=== PATIENT | male | born 1990 | race African-American/Black ===

== ENCOUNTER 2021-01-11 16:37 | Outpatient (REF) | payer OTHER, SELFPAY ==
[2021-01-11 17:55] LABS: Hematocrit 42.9 % (42-52); Hemoglobin 15.2 g/dl (14.0-18.0); Mean Corpuscular HGB Conc 35.4 g/dl (31.0-36.0); Mean Corpuscular Hemoglobin 29.7 pg (27.0-33.0); Mean Corpuscular Volume 83.8 fL (80-98); Mean Platelet Volume 11.3 fL (9.4-12.4); Platelet Count 197 X10*3/uL (160-400); Red Blood Count 5.12 X10*6/uL (4.60-5.80); Red Cell Distribution Width 11.9 % (11.0-16.0); White Blood Count 6.2 X10*3/uL (4.8-10.8)
[2021-01-11 18:03] LABS: Glucose Urine UA NEG (NEG); Leukocyte Esterase Urine NEG (NEG); Nitrite Urine NEG (NEG); Specific Gravity - Urine <= 1.005 (1.005-1.025); Urine Blood NEG (NEG); Urine Ketones NEG (NEG); Urine Protein NEG (NEG-TRACE)
[2021-01-11 18:07] LABS: Appearance Urine CLEAR; Color Urine COLORLESS
[2021-01-11 18:26] LABS: Alanine Aminotransferase 40 U/L (0-40); Albumin Level 4.6 g/dL (3.5-5.0); Alkaline Phosphatase 106 U/L (39-117); Anion Gap 12 (12-20); Aspartate Amino Transferase 28 U/L (5-37); Bilirubin Direct 0.2 mg/dL (0.0-0.5); Bilirubin Total 0.7 mg/dL (0.0-1.0); Blood Urea Nitrogen 13 mg/dL (9-16); Calcium 9.8 mg/dL (8.4-10.2); Carbon Dioxide 29 mmol/L (22-29); Chloride 107 mmol/L (96-108); Cholesterol 214 mg/dL; Estimated Glomerular Filt Rate > 60; Glucose Random 72 mg/dL (60-115); HDL Cholesterol 48 mg/dL; LDL Cholesterol Calculated 135 mg/dl; Potassium 3.9 mmol/L (3.3-5.1); Sodium 144 mmol/L (135-145); Total Protein 7.2 g/dL (6.5-8.0); Triglycerides 155 mg/dL
[2021-01-11 18:45] LABS: Thyroid Stimulating Hormone 1.21 uIU/mL (0.32-4.0)
== END 2021-01-11 16:38 | disposition home or self-care (01) ==
LOC: HO.LAB 16:37
PROVIDERS: PCP Internal Medicine; Visit Provider Internal Medicine
DX: Z00.00 Encounter for general adult medical examination without abnormal findings (principal)
CPT/HCPCS: 36415; 80048; 80061; 80076; 81003; 84443; 85027

== ENCOUNTER 2022-04-25 11:51 | Outpatient (REF) | payer OTHER, SELFPAY ==
[2022-04-25 14:07] LABS: Hematocrit 44.3 % (42.0-52.0); Hemoglobin 15.6 g/dl (14.0-18.0); Mean Corpuscular HGB Conc 35.2 g/dl (31.0-36.0); Mean Corpuscular Hemoglobin 29.3 pg (27.0-33.0); Mean Corpuscular Volume 83.1 fL (80.0-98.0); Mean Platelet Volume 11.8 fL (9.4-12.4); Platelet Count 193 X10*3/uL (160-400); Red Blood Count 5.33 X10*6/uL (4.60-5.80); White Blood Count 5.8 X10*3/uL (4.8-10.8)
[2022-04-25 14:59] LABS: Alanine Aminotransferase 86 U/L (0-40); Albumin Level 4.5 g/dL (3.5-5.0); Alkaline Phosphatase 127 U/L (39-117); Anion Gap 14 (12-20); Aspartate Amino Transferase 34 U/L (5-37); Bilirubin Direct 0.2 mg/dL (0.0-0.5); Bilirubin Total 0.8 mg/dL (0.0-1.0); Blood Urea Nitrogen 13 mg/dL (9-16); Calcium 9.7 mg/dL (8.4-10.2); Carbon Dioxide 27 mmol/L (22-29); Chloride 106 mmol/L (96-108); Cholesterol 187 mg/dL; Estimated Glomerular Filt Rate > 60; Glucose Random 72 mg/dL (60-115); HDL Cholesterol 43 mg/dL; LDL Cholesterol Calculated 124 mg/dl; Potassium 4.7 mmol/L (3.3-5.1); Sodium 142 mmol/L (135-145); Thyroid Stimulating Hormone 0.55 uIU/mL (0.32-4.0); Triglycerides 104 mg/dL
== END 2022-04-25 11:52 | disposition home or self-care (01) ==
LOC: HO.LAB 11:51
PROVIDERS: PCP Internal Medicine; Visit Provider Internal Medicine
DX: Z00.00 Encounter for general adult medical examination without abnormal findings (principal)
CPT/HCPCS: 36415; 80048; 80061; 80076; 84443; 85027

== ENCOUNTER 2022-04-28 09:18 | Outpatient (REF) | payer OTHER, SELFPAY ==
[2022-04-28 12:10] LABS: HBS Num1 > 1000.00 mIU/mL (0-7.99); HBc Num1 0.06 S/CO (0.00-0.79); HBsAGNum1 0.28 S/CO (0.00-0.99); Hepatitis B Core Antibody Nonreactive (Nonreactive); Hepatitis B Surface Antigen Negative (Negative); ~Hepatitis B Surface Antibody REACTIVE (Nonreactive); ~Hepatitis C Antibody Nonreactive (Nonreactive)
[2022-04-29 08:34] LABS: Hepatitis A Antibody IgM 0.15 Index (0-0.79); ~Hepatitis A Antibody IgM Nonreactive (Nonreactive)
== END 2022-04-28 09:19 | disposition home or self-care (01) ==
LOC: HO.LAB 09:18
PROVIDERS: PCP Internal Medicine; Visit Provider Internal Medicine
DX: K75.9 Inflammatory liver disease, unspecified (principal)
CPT/HCPCS: 36415; 86704; 86706; 86709; 86803; 87340

== ENCOUNTER 2022-05-26 09:51 | Outpatient (REF) | payer OTHER, SELFPAY ==
--- NOTE | ~2022-05-26 | US_ITS ---
EXAMINATION: US ABDOMEN COMPLETE CLINICAL INFORMATION: Abnormal levels of other serum enzymes. COMPARISON: None TECHNIQUE: Real-time imaging of the abdominal viscera. FINDINGS: PANCREAS: Normal. ABDOMINAL AORTA: The proximal, mid, and distal segments are normal in caliber. INFERIOR VENA CAVA: Visualized portions are normal. LIVER: The liver is normal in size. The liver contour is normal. Diffusely increased hepatic echogenicity and sound attenuation consistent with diffuse hepatic steatosis. There are areas of geographic focal fatty sparing seen adjacent to gallbladder fossa. No focal hepatic lesion. There is no intrahepatic biliary duct dilatation seen. GALLBLADDER: Normal. The gallbladder is physiologically distended without evidence of stones, sludge, polyps, wall thickening or pericholecystic fluid. COMMON BILE DUCT: Normal in caliber measuring 0.3 cm in diameter. RIGHT KIDNEY: Normal. No hydronephrosis. No renal calculi or focal parenchymal lesions. The kidney measures 9.8 cm in maximum dimension. LEFT KIDNEY: Normal. No hydronephrosis. No renal calculi or focal parenchymal lesions. The kidney measures 9.9 cm in maximum dimension. SPLEEN: Normal. The spleen measures 9.1 cm in maximum dimension. FREE FLUID: None. US/US abdomen complete IMPRESSION: Sonographic appearance of diffuse hepatic steatosis with areas of focal fatty sparing adjacent to gallbladder fossa.
== END 2022-05-26 09:52 | disposition home or self-care (01) ==
LOC: HO.HMGCX 09:51
PROVIDERS: PCP Internal Medicine; Visit Provider Internal Medicine
DX: R74.8 Abnormal levels of other serum enzymes (principal)
CPT/HCPCS: 76700

== ENCOUNTER 2022-11-17 13:40 | Outpatient (AMB) | payer OTHER, SELFPAY ==
--- NOTE | 2022-11-17 13:45 | MHC.PC.OV ---
Vital Signs 11/17/22 13:47 Height 5 ft 7 in Weight 180 lb 6 oz BMI 28.2 BP 130/70 Blood Pressure Location Lt brachial Position Sitting Pulse 81 Pulse Source Pulse Oximeter Pulse Oximetry (%) 96 Oxygen Delivery Method Room Air Intake Visit Reasons: 6 month f/u Intake Note: Patient is here to follow up on allergies. 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 Accompanied by: Self / Same As Patient Allergies No Known Allergies Allergy (Verified 12/02/22 16:39) Medication List - Last Reconciled 12/02/22 by James Luna MD fluticasone propionate 50 mcg/actuation (Flonase Allergy Relief) 1 spray intranasal DAILY miscellaneous medical supply 1 ea miscellaneous DAILY Tobacco use date assessed: 11/17/22 Dental Screening Dental Screen Date: 11/17/22 Did you have a dental visit in the last 12 months?: Yes Did you have a dental problem in the last 6 months where you did not have access to dental care?: No Was dental information given to patient?: Patient has dentist HPI 6 month f/u HPI Details 32-year-old male presents to the office requesting an annual physical. [facility] Medical History (Updated 08/31/22 @ 16:09 by James Luna MD) Allergic rhinitis Surgical History No history of previous surgery Family History Mother No problems noted. 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 Hearing needs: No Vision needs: No Questionnaire PHQ-9 Over the last 2 weeks, how often have you been bothered by any of the following problems? 1. Little interest or pleasure in doing things: not at all 2. Feeling down, depressed, or hopeless: not at all 3. Trouble falling or staying asleep, or sleeping too much: not at all 4. Feeling tired or having little energy: not at all 5. Poor appetite or overeating: not at all 6. Feeling bad about yourself - or that you are a failure or have let yourself or your family down: not at all 7. Trouble concentrating on things, such as reading the newspaper or watching television: not at all 8. Moving or speaking so slowly that other people could have noticed. Or the opposite - being so fidgety or restless that you have been moving around a lot more than usual: not at all 9. Thoughts that you would be better off or of hurting yourself in some way: not at all Total score: 0 Depression Screening Interpretation: Negative Source: Developed by Drs. Soren Jorge, Valerie David, Teodoro Escobedo and colleagues, with an educational luisito from [employer] Thrive Questionnaire Date Thrive assessed: 11/17/22 I am a: Patient What is your living situation today?: I have a steady place to live Within the past 12 months, did the food you bought not last and you didn't have the money to get more?: Never true Within the past 12 months, did you worry whether your food would run out before you got money to buy more?: Never true Do you have trouble paying for medicines?: No Do you have trouble getting transportation to medical appointments?: No Do you have trouble paying your heating and electricity bill?: No Do you have trouble taking care of your child, family member or friend?: No Do you have trouble with day-to-day activities such as bathing, preparing meals, shopping, managing finances, etc.?: No Are you currently unemployed and looking for a job?: No Are you interested in more education?: No Currently or been in a relationship where the following occur: no concerns reported AUDIT C Alcohol Use Questionnaire (AUDIT-C) 1. How often do you have a drink containing alcohol?: Monthly or less 2. How many drinks containing alcohol do you have on a typical day when you are drinking?: 1 or 2 Total Score: 1 MAINOR-7 AMB Questionnaire MAINOR-7 Date MAINOR - 7 assessed: 11/17/22 Feeling nervous, anxious, or on edge: 0 = Not at all Not being able to stop or control worryin = Not at all Worrying too much about different things: 0 = Not at all Trouble relaxin = Not at all Being so restless that it is hard to sit still: 0 = Not at all Becoming easily annoyed or irritable: 0 = Not at all Feeling afraid as if something awful might happen: 0 = Not at all Total MAINOR-7 score (0-4 normal; 5-9 mild; 10-14 moderate; 15-21 severe): 0 Source: Developed by Drs. Soren Jorge, Valerie David, Teodoro Escobedo and colleagues, with an educational luisito from [employer] Physical exam (Primary Care) Vital Signs: Last Vital Signs Pulse 81 11/17/22 13:47 BP 130/70 11/17/22 13:47 Pulse Ox 96 11/17/22 13:47 Oxygen Delivery Method Room Air 11/17/22 13:47 BMI result Body Mass Index 28.2 Tobacco/Smoking Status: Tobacco use Status Tobacco use date assessed 11/17/22 11/17/22 13:51 Patient Tobacco Use Status Never used Tobacco 11/17/22 13:51 e-Cigarette/Vaping Use Never Used 11/17/22 13:51 PHQ-9: PHQ-9 Score PHQ-9: Total score 0 11/17/22 14:15 Depression Screening Interpretation: Negative Thrive Assessment: Date of Thrive Assessment Date Thrive assessed 11/17/22 11/17/22 13:51 Currently or been in a relationship where the following occur: no concerns reported Const General: cooperative, healthy appearing and comfortable [facility] Head: Yes normal to inspection and Yes atraumatic Eyes General: appearance normal, both eyes and all related structures Neck Neck: Yes normal visual inspection and Yes full ROM Chest Chest palpation & inspection: normal inspection of the chest Resp Effort & Inspection: normal respiratory effort Auscultation: clear to auscultation bilaterally Cardio Jugular venous distension: no JVD Palpation: normal PMI Rate: regular rate Heart sounds: S1 normal heart sound present and S2 normal heart sound present GI Palpation (GI): Soft to palpation and No hepatosplenomegaly present Extrem General: Yes normal to inspection and Yes full ROM Assessment and Plan Assessment & Plan (1) Annual physical exam: Code(s): Z00.00 - Encounter for general adult medical examination without abnormal findings Plan: Blood work has been ordered. Orders: Orders Basic Metabolic Panel 11/18/22 Z00.00 - Encounter for general adult medical examination without abnormal findings Lipid Panel 11/18/22 Z00.00 - Encounter for general adult medical examination without abnormal findings Liver Panel 11/18/22 Z00.00 - Encounter for general adult medical examination without abnormal findings Thyroid Stimulating Hormone 11/18/22 Z00.00 - Encounter for general adult medical examination without abnormal findings Complete Blood Count no Diff 11/18/22 Z00.00 - Encounter for general adult medical examination without abnormal findings UA and rflx microscopic 11/18/22 Z00.00 - Encounter for general adult medical examination without abnormal findings Coding Level of Care Code Est Pt Prev Care 18-39y(90021) Diagnoses Annual physical exam Z00.00
[2022-11-17 13:47] VITALS: BP 130/70; PULSE 81; O2SAT 96; BMI 28.2
== END 2022-11-17 14:21 | disposition home or self-care (01) ==
PROVIDERS: PCP Internal Medicine; Visit Provider Internal Medicine
DX: Z00.00 Encounter for general adult medical examination without abnormal findings (principal)
CPT/HCPCS: 99395

== ENCOUNTER 2022-11-18 08:33 | Outpatient (REF) | payer OTHER, SELFPAY ==
[2022-11-18 09:22] LABS: Hematocrit 43.2 % (42.0-52.0); Hemoglobin 15.3 g/dl (14.0-18.0); Mean Corpuscular HGB Conc 35.4 g/dl (31.0-36.0); Mean Corpuscular Hemoglobin 29.3 pg (27.0-33.0); Mean Corpuscular Volume 82.8 fL (80.0-98.0); Mean Platelet Volume 11.2 fL (9.4-12.4); Platelet Count 169 X10*3/uL (160-400); Red Blood Count 5.22 X10*6/uL (4.60-5.80); Red Cell Distribution Width 12.3 % (11.0-16.0); White Blood Count 5.7 X10*3/uL (4.8-10.8)
[2022-11-18 09:56] LABS: Alanine Aminotransferase 54 U/L (0-40); Albumin Level 4.3 g/dL (3.5-5.0); Alkaline Phosphatase 122 U/L (39-117); Anion Gap 13 (12-20); Aspartate Amino Transferase 28 U/L (5-37); Bilirubin Direct 0.2 mg/dL (0.0-0.5); Bilirubin Total 0.9 mg/dL (0.0-1.0); Blood Urea Nitrogen 9 mg/dL (9-16); Calcium 9.4 mg/dL (8.4-10.2); Carbon Dioxide 26 mmol/L (22-29); Chloride 108 mmol/L (96-108); Cholesterol 204 mg/dL; Estimated Glomerular Filt Rate 56; Glucose Random 93 mg/dL (60-115); HDL Cholesterol 44 mg/dL; LDL Cholesterol Calculated 135 mg/dl; Potassium 3.9 mmol/L (3.3-5.1); Sodium 143 mmol/L (135-145); Total Protein 7.1 g/dL (6.5-8.0); Triglycerides 126 mg/dL
[2022-11-18 10:14] LABS: Thyroid Stimulating Hormone 1.11 uIU/mL (0.32-4.0)
[2022-11-18 11:31] LABS: Appearance Urine Clear; Color Urine Yellow; Glucose Urine UA Negative (Negative); Leukocyte Esterase Urine Negative (Negative); Nitrite Urine Negative (Negative); PH 6.5 (5.0-9.0); Specific Gravity - Urine 1.015 (1.005-1.025); Urine Blood Negative (Negative); Urine Ketones Negative (Negative); Urine Protein Negative (Neg-Trace)
== END 2022-11-18 08:34 | disposition home or self-care (01) ==
LOC: HO.LAB 08:33
PROVIDERS: PCP Internal Medicine; Visit Provider Internal Medicine
DX: Z00.00 Encounter for general adult medical examination without abnormal findings (principal); Z20.2 Contact with and (suspected) exposure to infections with a predominantly sexual mode of transmission
CPT/HCPCS: 36415; 80048; 80061; 80076; 81003; 84443; 85027

== ENCOUNTER 2023-02-20 11:20 | Outpatient (AMB) | payer OTHER, SELFPAY ==
--- NOTE | 2023-02-20 11:51 | AM.OFFWIN_ITS ---
Intake Vital Signs 02/20/23 11:52 Height 5 ft 7 in Weight 82.554 kg BMI 28.5 BP 130/70 Blood Pressure Location Lt brachial Position Sitting Pulse 76 Pulse Source Pulse Oximeter Temp 97.9 F Temp Source Temporal Artery Scan Pulse Oximetry (%) 98 Intake Visit Reasons: EP Finger injury LT middle [id number] Intake Note: pt is here for c/o left middle finger injury Patient Tobacco Use Status: Never used Tobacco Allergies No Known Allergies Allergy (Verified 02/20/23 11:54) Do you need a note to return to daycare/school/sports/work: Yes HPI HPI Comments History of Present Illness Details 1207 32-year-old male presents with left midd le finger pain status post jamming his finger in a door times a week, pain is been constant worse with movement better at rest. Denies numbness, tingling. No previous issues with this finger. Has not seen a doctor specialist for this. No fevers or chills. Physical exam slight discomfort with range of motion of left middle finger. No overlying skin changes, no step-offs or deformities. Capillary refill less than 2 seconds. No wrist drop. 2+ radial pulses equal bilateral. There is a left middle finger subungual hematoma. Likely traumatic subungal hematoma , unlikely fracture, dislocation. No signs of neurovascular compromise or threat to [place]. Educated patient on supportive measures. Will not be draining it here at Urgent Care due to risk for infection. Patient can follow-up with PCP. In Educated patient on diagnosis and treatment plan, answered all question, patient verbalizes understanding. At this time patient will be discharged home, advised to return with new or worsening symptoms. Educated on worrisome signs and symp toms and when to return. At this time I feel comfortable discharge home. [facility] Medical History Allergic rhinitis Surgical History No history of previous surgery Family History Mother No problems noted. 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 Hearing needs: No Vision needs: No Review of Systems Const Details: Constitutional : No Weight loss, No Fever, No Chills, No Fatigue, No Malaise ENT/Mouth : No sore throat, No Rhinorrhea Eyes: No Eye Pain, No Swelling, No Redness Cardiovascular : No Chest Pain, No SOB, No Dyspnea on Exertion, No Orthopnea, No Edema, No Palpitations Respiratory : No Cough, No Sputum, No Wheezing Gastrointestinal : No Nausea, No Vomiting, No Diarrhea, No Constipation, No abdominal Pain, No Hematochezia, No Melena Genitourinary : No Dysuria, No Urinary Frequency, No Hematuria, Musculoskeletal : + joint pain, No Myalgias, No Joint Swelling Skin : No Skin Lesions, No rash Neuro : No Weakness, No Numbness, No Dizziness, No Headache Psych : No Anxiety/Panic, No Depression All other systems reviewed and are negative All systems reviewed & are unremarkable except as noted in HPI and below Physical Exam Vital Signs: Last Vital Signs Temp 97.9 F 02/20/23 11:52 Pulse 76 02/20/23 11:52 BP 130/70 02/20/23 11:52 Pulse Ox 98 02/20/23 11:52 BMI result Body Mass Index 28.5 vss Appearance: Alert.? Oriented X3.? No acute distress.? Head: Normocephalic, atraumatic, no step-offs or deformities Eyes: Pupils equal, round and reactive to light.? ENT: Pharynx normal.? Neck: Normal inspection.? Neck supple.? CVS: Normal heart rate and rhythm.? Pulses normal.? Respiratory: No respiratory distress.? Breath sounds normal.? Abdomen: Soft and nontender.? Skin: Skin warm and dry.? Normal skin color.? Normal skin turgor.? Extremities: No lower extremity edema.? No calf ttp. 5/5 strength to bilateral upper and lower extremities + slight discomfort with range of motion of left middle finger. No overlying skin changes, no step-offs or deformities. Capillary refill less than 2 seconds. No wrist drop. 2+ radial pulses equal bilateral. There is a left middle finger subungual hematoma. Neuro: Oriented X 3.? No motor deficit.? No sensory deficit. CN 2-12 intact Assessment & Plan Assessment & Plan (1) Pain of left middle finger: Code(s): M79.645 - Pain in left finger(s) (2) Subungual hematoma of digit of hand: Code(s): S60.10XA - Contusion of unspecified finger with damage to nail, initial encounter Plan Take your medications as prescribed. If you were prescribed antibiotics today, it is important that you take your medication to their entirety, do not skip any doses, do not finish them early. Follow-up with your primary care provider this week. Return to the emergency department with new or worsening symptoms. Such as fevers, chills, chest pain, shortness of breath, nausea, vomiting, dizziness, headache, vision changes, lethargy In case of emergency call 911 Orders: Orders XR hand RT 2V Today M79.645 - Pain in left finger(s) Coding Level of Care Code Est Pt Level 3 (43709) Diagnoses Pain of left middle finger M79.645 Subungual hematoma of digit of hand S60.10XA
[2023-02-20 11:52] VITALS: BP 130/70; PULSE 76; TEMP 36.6; O2SAT 98; BMI 28.5
== END 2023-02-20 12:45 | disposition home or self-care (01) ==
PROVIDERS: PCP Internal Medicine; Visit Provider Physician Assistant
DX: M79.645 Pain in left finger(s) (principal); S60.10XA Contusion of unspecified finger with damage to nail, initial encounter
CPT/HCPCS: 99213

== ENCOUNTER 2023-02-20 12:21 | Outpatient (REF) | payer OTHER, SELFPAY ==
--- NOTE | ~2023-02-20 | XR_ITS ---
EXAMINATION: XR HAND, LEFT CLINICAL INFORMATION: Pain COMPARISON: None available. TECHNIQUE: PA, lateral, and oblique views of the left hand. FINDINGS: Skin marker at the distal third finger. There appears be soft tissue swelling of the distal aspect of the third finger. No unexpected radiopaque foreign bodies or air is seen. Alignment is anatomic. Joint spaces are maintained. No visible acute fracture or dislocation. No erosions or soft tissue calcifications. XR/XR hand LT min 3V IMPRESSION: Apparent soft tissue swelling of the third finger. No radiographic evidence of acute osseous abnormality.
== END 2023-02-20 12:22 | disposition home or self-care (01) ==
LOC: HO.HMGCX 12:21
PROVIDERS: PCP Internal Medicine; Visit Provider Physician Assistant
DX: M79.645 Pain in left finger(s) (principal)
CPT/HCPCS: 73130

== ENCOUNTER 2023-04-18 08:41 | Outpatient (AMB) | payer OTHER, SELFPAY ==
--- NOTE | 2023-04-18 09:25 | AM.OFFWIN_ITS ---
Intake Vital Signs 04/18/23 09:33 Height 5 ft 7 in Weight 185 lb 2 oz BMI 29.0 BP 126/72 Blood Pressure Location Lt brachial Position Sitting Pulse 66 Pulse Source Pulse Oximeter Temp 98.1 F Temp Source Oral Pulse Oximetry (%) 98 Oxygen Delivery Method Room Air Intake Visit Reasons: EST/left middle finger nail black(lobby) Patient Tobacco Use Status: Never used Tobacco Allergies No Known Allergies Allergy (Verified 04/19/23 06:46) Medication List - Last Reconciled 04/19/23 by James Luna MD cephalexin 500 mg PO QID 7 days fluticasone propionate 50 mcg/actuation (Flonase Allergy Relief) 1 spray intranasal DAILY Do you need a note to return to daycare/school/sports/work: No HPI EST/left middle finger nail black(lobby) HPI Details 32 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 Finger nail discoloration. [facility] Medical History Allergic rhinitis Surgical History No history of previous surgery Family History Mother No problems noted. 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 Non tender Assessment & Plan Assessment & Plan (1) Subungual hematoma of digit of hand: Code(s): S60.10XA - Contusion of unspecified finger with damage to nail, initial encounter Plan: Patient was advised that the nail will not be removed. He has no pain sx. The nail will detach eventually and a healthy nail will replace it. Coding Level of Care Code Est Pt Level 3 (99013) Diagnoses Subungual hematoma of digit of hand S60.10XA
[2023-04-18 09:33] VITALS: BP 126/72; PULSE 66; TEMP 36.7; O2SAT 98; BMI 29.0
== END 2023-04-18 10:16 | disposition home or self-care (01) ==
PROVIDERS: PCP Internal Medicine; Visit Provider Internal Medicine
DX: S60.10XA Contusion of unspecified finger with damage to nail, initial encounter (principal)
CPT/HCPCS: 99213

== ENCOUNTER 2023-07-06 13:22 | Outpatient (AMB) | payer OTHER, SELFPAY ==
[2023-07-06 13:24] VITALS: BP 132/70; PULSE 94; TEMP 36.8; O2SAT 98; BMI 29.0
--- NOTE | 2023-07-06 13:24 | MHC.OFFWIV ---
Intake Vital Signs 07/06/23 13:24 Height 5 ft 7 in Weight 185 lb BMI 29.0 BP 132/70 Blood Pressure Location Lt brachial Position Sitting Pulse 94 Pulse Source Pulse Oximeter Temp 98.3 F Temp Source Temporal Artery Scan Pulse Oximetry (%) 98 Oxygen Delivery Method Room Air Intake Visit Reasons: EST/sinus congestion (lobby) Intake Note: pt is here today for sinus congestion started monday Patient Tobacco Use Status: Never used Tobacco Allergies No Known Allergies Allergy (Verified 07/06/23 13:25) Do you need a note to return to daycare/school/sports/work: No HPI HPI Comments History of Present Illness Details This is a 32-year-old male with a past medical history of allergic rhinitis presenting for evaluation of sinus congestion. Patient states on Monday he had rhinorrhea coupled with sneezing. Patient states the symptoms have resolved and he only has sinus congestion. 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 Patient is concerned that his sinus congestion will prevent him from doing this training. Patient denies having any fevers, chills, sore throat, ear pain or shortness a breath. Patient has not taken any medication for treatment of his symptoms. [facility] Medical History Allergic rhinitis Surgical History No history of previous surgery Family History Mother No problems noted. 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 Hearing needs: No Vision needs: No Review of Systems Const All systems reviewed & are unremarkable except as noted in HPI and below Denies chills, Denies fever(s), Denies headache(s) and Denies malaise Eyes Reports no additional complaints ENT Reports as per HPI, Denies headache(s), Reports nasal congestion, Denies sinus pain and Reports sinus pressure Card Reports no additional complaints Resp Reports no additional complaints Skin/Breast Reports system reviewed and no additional complaints, except as documented Neuro Denies headache(s) Physical Exam Const General: cooperative, healthy appearing, comfortable, no acute distress and well developed; No ill appearing or lethargic Nutritional Appearance: average body habitus Orientation/consciousness: patient oriented x3 and No lethargic Limitations: no limitations HEENT Head: Yes normal to inspection and Yes normocephalic Ears: hearing grossly normal bilaterally, external ears normal, right TM abnormal (bulging without erythema; mild fluid level noted), TM normal on the left and EAC's normal General nose exam: Normal external nose present and Normal nares present Face and sinus: Yes normal facial exam, Yes sinuses nontender and Yes face symmetric Mouth: Normal oral and palatal mucosa present and moist mucous membranes Teeth and gingiva: dentition normal Throat: Yes posterior oropharynx normal and No postnasal drainage Eyes Eyelids: Yes eyelids normal Conjunctivae: conjunctivae normal Sclerae: sclerae normal Corneas: corneas normal Pupils: Equal, round and reactive pupils present EOM: EOMs intact bilaterally Neck Lymphatic: no lymphadenopathy noted Resp Effort & Inspection: normal respiratory effort, no audible wheezes, no cough and no respiratory distress Auscultation: clear to auscultation bilaterally Cardio Rate: regular rate Rhythm: regular rhythm Skin General skin exam: no rashes or lesions noted Neuro General: patient oriented x3 Cranial nerves: Yes Equal, round and reactive pupils present Psych Appearance: grossly normal Mental Status: mental status grossly normal Insight: Good insight present (Psych) Judgement: Good judgement present (Psych) Assessment & Plan Assessment & Plan (1) Fluid level behind tympanic membrane of right ear: Comment: There is no evidence of otitis media or bacterial sinus infection. Patient will use Flonase once daily for the next 2 weeks. 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 Coding Level of Care Code Est Pt Level 3 (96892) Diagnoses Fluid level behind tympanic membrane of right ear H65.91 Time Spent (min) 20
== END 2023-07-06 14:18 | disposition home or self-care (01) ==
PROVIDERS: PCP Internal Medicine; Visit Provider Physician Assistant
DX: H65.91 Unspecified nonsuppurative otitis media, right ear (principal)
CPT/HCPCS: 99213

== ENCOUNTER 2023-08-24 10:09 | Outpatient (AMB) | payer OTHER, SELFPAY ==
--- NOTE | 2023-08-24 10:18 | A.OFFPC_ITS ---
Vital Signs 08/24/23 10:19 Height 5 ft 7 in Weight 184 lb 4 oz BMI 28.9 BP 110/70 Blood Pressure Location Lt brachial Position Sitting Pulse 70 Pulse Source Pulse Oximeter Pulse Oximetry (%) 98 Oxygen Delivery Method Room Air Intake Visit Reasons: PE Intake Note: Patient is here today for a physical. Bagman/Woman Required: No Biomedical Service Engineer: Not Required per policy Accompanied by: Self / Same As Patient Allergies No Known Allergies Allergy (Verified 09/03/23 18:13) Medication List - Last Reconciled 09/03/23 by James Luna MD fluticasone propionate 50 mcg/actuation (Flonase Allergy Relief) 1 spray intranasal DAILY Tobacco use date assessed: 08/24/23 Dental Screening Dental Screen Date: 08/24/23 Did you have a dental visit in the last 12 months?: Yes Did you have a dental problem in the last 6 months where you did not have access to dental care?: No Was dental information given to patient?: Patient has dentist HPI PE HPI Details 32-year-old male presents to the office requesting an annual physical [facility] Medical History Allergic rhinitis Surgical History No history of previous surgery Family History Mother No problems noted. 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 Hearing needs: No Vision needs: No Questionnaire PHQ-9 Over the last 2 weeks, how often have you been bothered by any of the following problems? 1. Little interest or pleasure in doing things: not at all 2. Feeling down, depressed, or hopeless: not at all 3. Trouble falling or staying asleep, or sleeping too much: not at all 4. Feeling tired or having little energy: not at all 5. Poor appetite or overeating: not at all 6. Feeling bad about yourself - or that you are a failure or have let yourself or your family down: not at all 7. Trouble concentrating on things, such as reading the newspaper or watching television: not at all 8. Moving or speaking so slowly that other people could have noticed. Or the opposite - being so fidgety or restless that you have been moving around a lot more than usual: not at all 9. Thoughts that you would be better off or of hurting yourself in some way: not at all Total score: 0 Depression Screening Interpretation: Negative Depression Screening Done: Yes Source: Developed by Drs. Soren Jorge, Valerie David, Teodoro Escobedo and colleagues, with an educational luisito from [email or web address]. Thrive Questionnaire Date Thrive assessed: 08/24/23 I am a: Patient What is your living situation today?: I have a steady place to live Within the past 12 months, did the food you bought not last and you didn't have the money to get more?: Never true Within the past 12 months, did you worry whether your food would run out before you got money to buy more?: Never true Do you have trouble paying for medicines?: No Do you have trouble getting transportation to medical appointments?: No Do you have trouble paying your heating and electricity bill?: No Do you have trouble taking care of your child, family member or friend?: No Do you have trouble with day-to-day activities such as bathing, preparing meals, shopping, managing finances, etc.?: No Are you currently unemployed and looking for a job?: No Are you interested in more education?: No Currently or been in a relationship where the following occur: no concerns reported THRIVE Score: 0 AUDIT C Alcohol Use Questionnaire (AUDIT-C) 1. How often do you have a drink containing alcohol?: Monthly or less 2. How many drinks containing alcohol do you have on a typical day when you are drinking?: 1 or 2 Total Score: 1 MAINOR-7 AMB Questionnaire MAINOR-7 Date MAINOR - 7 assessed: 08/24/23 Feeling nervous, anxious, or on edge: 0 = Not at all Not being able to stop or control worryin = Not at all Worrying too much about different things: 0 = Not at all Trouble relaxin = Not at all Being so restless that it is hard to sit still: 0 = Not at all Becoming easily annoyed or irritable: 0 = Not at all Feeling afraid as if something awful might happen: 0 = Not at all Total MAINOR-7 score (0-4 normal; 5-9 mild; 10-14 moderate; 15-21 severe): 0 Source: Developed by Drs. Soren Jorge, Valerie David, Teodoro Escobedo and colleagues, with an educational luisito from [email or web address]. Physical exam (Primary Care) Vital Signs: Last Vital Signs Pulse 70 08/24/23 10:19 BP 110/70 08/24/23 10:19 Pulse Ox 98 08/24/23 10:19 Oxygen Delivery Method Room Air 08/24/23 10:19 Care Plan Goal for BP management: Blood pressure is in range. BMI result Body Mass Index 28.9 Tobacco/Smoking Status: Tobacco use Status Tobacco use date assessed 08/24/23 08/24/23 10:23 Patient Tobacco Use Status Never used Tobacco 08/24/23 10:23 e-Cigarette/Vaping Use Never Used 08/24/23 10:23 PHQ-9: PHQ-9 Score PHQ-9: Total score 0 08/24/23 10:23 Depression Screening Interpretation: Negative Thrive Assessment: Date of Thrive Assessment Date Thrive assessed 08/24/23 08/24/23 10:23 Currently or been in a relationship where the following occur: no concerns reported Const General: cooperative and healthy appearing Nutritional Appearance: well nourished Orientation/consciousness: patient oriented x3 Limitations: no limitations HENMT Head: Yes normal to inspection Eyes General: appearance normal, both eyes and all related structures Neck Neck: Yes normal visual inspection Chest Chest palpation & inspection: normal palpation of entire chest wall Resp Effort & Inspection: normal respiratory effort Neuro General: patient oriented x3 Assessment and Plan Assessment & Plan (1) Annual physical exam: Code(s): Z00.00 - Encounter for general adult medical examination without abnormal findings Plan: Blood work has been ordered. Will speak to patient after the results are obtained Medications: Refilled fluticasone propionate 50 mcg/actuation (Flonase Allergy Relief) administer into each nostril 1 spray intranasal DAILY 9.9 mL 1RF Coding Level of Care Code Est Pt Prev Care 18-39y(15196) Diagnoses Annual physical exam Z00.00
[2023-08-24 10:19] VITALS: BP 110/70; PULSE 70; O2SAT 98; BMI 28.9
== END 2023-08-24 11:15 | disposition home or self-care (01) ==
PROVIDERS: PCP Internal Medicine; Visit Provider Internal Medicine
DX: Z00.00 Encounter for general adult medical examination without abnormal findings (principal)
CPT/HCPCS: 99395

== ENCOUNTER 2023-09-15 08:38 | Outpatient (REF) | payer OTHER, SELFPAY ==
[2023-09-15 09:34] LABS: Hematocrit 45.6 % (42.0-52.0); Hemoglobin 16.3 g/dl (14.0-18.0); Mean Corpuscular HGB Conc 35.7 g/dl (31.0-36.0); Mean Corpuscular Hemoglobin 29.6 pg (27.0-33.0); Mean Corpuscular Volume 82.9 fL (80.0-98.0); Mean Platelet Volume 11.2 fL (9.4-12.4); Platelet Count 184 X10*3/uL (160-400); Red Cell Distribution Width 11.9 % (11.0-16.0); White Blood Count 6.6 X10*3/uL (4.8-10.8)
[2023-09-15 10:18] LABS: Alanine Aminotransferase 50 U/L (0-40); Albumin Level 4.3 g/dL (3.5-5.0); Alkaline Phosphatase 150 U/L (39-117); Anion Gap 9 (12-20); Aspartate Amino Transferase 32 U/L (5-37); Bilirubin Direct 0.2 mg/dL (0.0-0.5); Bilirubin Total 0.6 mg/dL (0.0-1.0); Blood Urea Nitrogen 9 mg/dL (9-16); Calcium 9.3 mg/dL (8.4-10.2); Carbon Dioxide 31 mmol/L (22-29); Chloride 107 mmol/L (96-108); Cholesterol 198 mg/dL (<200); Estimated Glomerular Filt Rate > 60; Glucose Random 102 mg/dL (60-115); HDL Cholesterol 53 mg/dL (>40); LDL Cholesterol Calculated 126 mg/dL (<100); Potassium 4.2 mmol/L (3.3-5.1); Sodium 143 mmol/L (135-145); Total Protein 7.1 g/dL (6.5-8.0); Triglycerides 99 mg/dL (<150)
[2023-09-15 14:09] LABS: Appearance Urine Clear; Color Urine Yellow; Glucose Urine UA Negative (Negative); Leukocyte Esterase Urine Negative (Negative); Nitrite Urine Negative (Negative); PH 7.5 (5.0-9.0); Specific Gravity - Urine 1.015 (1.005-1.025); Urine Blood Negative (Negative); Urine Ketones Negative (Negative); Urine Protein Negative (Neg-Trace)
== END 2023-09-15 08:39 | disposition home or self-care (01) ==
LOC: HO.LAB 08:38
PROVIDERS: PCP Internal Medicine; Visit Provider Internal Medicine
DX: Z00.00 Encounter for general adult medical examination without abnormal findings (principal); Z13.6 Encounter for screening for cardiovascular disorders
CPT/HCPCS: 36415; 80048; 80061; 80076; 81003; 85027

== ENCOUNTER 2024-02-27 08:52 | Outpatient (AMB) | payer OTHER, SELFPAY ==
--- NOTE | 2024-02-27 08:54 | MHC.OFFWIV ---
Intake Vital Signs 02/27/24 08:55 Height 5 ft 7 in Weight 182 lb BMI 28.5 BP 122/86 Blood Pressure Location Rt brachial Position Sitting Pulse 90 Pulse Source Pulse Oximeter Temp 99.8 F Temp Source Oral Pulse Oximetry (%) 97 Oxygen Delivery Method Room Air Intake Visit Reasons: EP chills, running nose, throat Intake Note: Patient here for chills, head congestion, itchy throat which started yesterday. Patient Tobacco Use Status: Never used Tobacco Allergies No Known Allergies Allergy (Verified 02/27/24 08:56) Do you need a note to return to daycare/school/sports/work: Yes HPI HPI Comments History of Present Illness Details Patient is a 33yo M who presents to office with cough He has low grade fever Travel from [place] recently + ST, chills, fever and headache Has drill this weekend No medicine taken He said slight cough He took Robitussin last night PFSH Medical History Allergic rhinitis Surgical History No history of previous surgery Family History Mother No problems noted. 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 Hearing needs: No Vision needs: No Review of Systems Const Denies body aches, Reports chills, Reports fatigue, Reports fever(s) and Reports headache(s) Eyes Denies change in vision ENT Denies dizziness, Denies ear discharge, Denies otalgia, Reports headache(s), Reports nasal congestion, Reports nasal discharge, Reports sore throat, Denies throat swelling and Denies tongue swelling Card Denies chest pain and Denies syncope Resp Denies change in phlegm color, Denies chest congestion, Reports cough and Denies pain with cough GI Denies abdominal pain Neuro Denies confusion, Denies dizziness, Denies syncope and Reports headache(s) Psych Denies confusion Endo Reports fatigue Aller/Immun Denies throat swelling and Denies tongue swelling Physical Exam Vital Signs: Last Vital Signs Temp 99.8 F 02/27/24 08:55 Pulse 90 02/27/24 08:55 BP 122/86 02/27/24 08:55 Pulse Ox 97 02/27/24 08:55 Oxygen Delivery Method Room Air 02/27/24 08:55 BMI result Body Mass Index 28.5 General: Non-toxic, NAD. Speaking full sentences. Skin: Warm dry throughout Eye: EOMI HENT: Airway patent. Uvula midline. + slight pharyngeal erythema without exudates or edema. No ELECTROENCEPHALOGRAM TECHNOLOGIST. Bilateral canals clear. TM non-erythematous, non-bulging. + fluid behind R TM. No TM perforation or hemotympanum noted. Respiratory: CTA bilaterally. No wheezes, rales or rhonchi Cardiac: RRR. No murmur MSK: Full ROM extremities. Neurology: A/O x 3. No aphasia or facial droop. Gait without abnormality Psych: Good mood and affect Const General: No confusion Orientation/consciousness: No confusion Neuro General: No confusion Results AMB Rapid Strep AMB Rapid Strep Negative Last Edit by STACEY Mckeon on 02/27/24 09:09 Results Reviewed Results Reviewed: Laboratory Last Values Strep Scn Rapid Clinic Negative 02/27/24 09:08 Assessment & Plan Assessment & Plan (1) Upper respiratory tract infection: Code(s): J06.9 - Acute upper respiratory infection, unspecified Qualifiers: URI type: unspecified viral URI Qualified Code(s): J06.9 - Acute upper respiratory infection, unspecified Plan: Patient seen and evaluated. Strep: negative Covid/flu/rsv sent Discussed fever control & rest Patient gave verbal understanding and had no additional questions or concerns at time of discharge All questions answered Orders: Orders AMB Rapid Strep Screen Today Z13.9 - Encounter for screening, unspecified SARS-CoV2/FLU/RSV Today J06.9 - Acute upper respiratory infection, unspecified Coding Level of Care Code Est Pt Level 3 (63153) Diagnoses Viral upper respiratory tract infection J06.9 URI type: unspecified viral URI
[2024-02-27 08:55] VITALS: BP 122/86; PULSE 90; TEMP 37.7; O2SAT 97; BMI 28.5
== END 2024-02-27 09:18 | disposition home or self-care (01) ==
PROVIDERS: PCP Internal Medicine; Visit Provider Physician Assistant
DX: Z13.9 Encounter for screening, unspecified (principal); J06.9 Acute upper respiratory infection, unspecified

== ENCOUNTER 2024-02-27 08:52 | Outpatient (REF) | payer OTHER, SELFPAY ==
[2024-02-27 10:58] LABS: Influenza A PCR NEGATIVE (Negative); Influenza B PCR NEGATIVE (Negative); Resp Syncy Virus RNA Qual PCR NEGATIVE (Negative); SARS COV2 PCR INHOUSE POSITIVE (Negative)
== END 2024-02-27 08:53 | disposition home or self-care (01) ==
LOC: HO.LAB 08:52
PROVIDERS: PCP Internal Medicine; Visit Provider Physician Assistant
DX: J06.9 Acute upper respiratory infection, unspecified (principal)
CPT/HCPCS: 0241U; 87880; 99212

== ENCOUNTER 2024-04-17 08:58 | Outpatient (AMB) | payer OTHER, SELFPAY ==
--- NOTE | 2024-04-17 09:01 | MHC.PC.OV ---
Vital Signs 04/17/24 09:02 Height 5 ft 7 in Weight 177 lb BMI 27.7 BP 120/80 Blood Pressure Location Lt brachial Position Sitting Pulse 70 Pulse Source Pulse Oximeter Pulse Oximetry (%) 98 Oxygen Delivery Method Room Air Intake Visit Reasons: f/u Intake Note: Patient is here to follow up on health. Medical Transcription Editor Required: No Leasing Property Manager: Not Required per policy Accompanied by: Self / Same As Patient Allergies No Known Allergies Allergy (Verified 04/17/24 09:02) Tobacco use date assessed: 04/17/24 Dental Screening Dental Screen Date: 08/24/23 REPLACED BY [facility] Medical History (Updated 04/17/24 @ 09:15 by James Luna MD) Elevated liver enzymes Allergic rhinitis Surgical History No history of previous surgery Family History Mother No problems noted. 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 Hearing needs: No Vision needs: No Questionnaire Thrive Questionnaire Date Thrive assessed: 08/24/23 AUDIT C Alcohol Use Questionnaire (AUDIT-C) 2. How many drinks containing alcohol do you have on a typical day when you are drinking?: 3 or 4 3. How often do you have six or more drinks on one occasion?: Never Total Score: 1 MAINOR-7 AMB Questionnaire MAINOR-7 Date MAINOR - 7 assessed: 08/24/23 Source: Developed by Drs. Soren Jorge, Valerie David, Teodoro Escobedo and colleagues, with an educational luisito from [employer]. Physical exam (Primary Care) Vital Signs: Last Vital Signs Pulse 70 04/17/24 09:02 BP 120/80 04/17/24 09:02 Pulse Ox 98 04/17/24 09:02 Oxygen Delivery Method Room Air 04/17/24 09:02 BMI result Body Mass Index 27.7 Tobacco/Smoking Status: Tobacco use Status Tobacco use date assessed 04/17/24 04/17/24 09:06 Patient Tobacco Use Status Never used Tobacco 04/17/24 09:06 e-Cigarette/Vaping Use Never Used 04/17/24 09:06 Thrive Assessment: Date of Thrive Assessment Date Thrive assessed 08/24/23 04/17/24 09:06 Coding Level of Care Code Est Pt Level 4 (18699) Complex EM visit Add On G2211 Diagnoses Elevated liver enzymes R74.8 Assessment & Plan Assessment & Plan (1) Elevated liver enzymes: Code(s): R74.8 - Abnormal levels of other serum enzymes Category: Medical Plan: See below Scribe Plan - Not visible on output: History of Present Illness The patient is a 33-year-old male presenting with a follow-up regarding elevated liver enzymes. The elevation in liver enzymes was noted during a prior evaluation. An ultrasound was conducted, revealing normal findings. The patient had COVID-19 earlier this month but reports feeling well currently. There have been no reported symptoms of concern following the episode of COVID-19. The patient has no history of medications that would affect liver functions. No symptoms of hepatic dysfunction, such as jaundice or abdominal pain, were reported. 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 - Exercise: Engages in regular exercise - Family Status: Has family residing in [place], [place] - Vaccinations: Received flu shots on the 7th and 16th of the current month Review of Systems - General: Reports feeling well - Respiratory: Denies current respiratory symptoms post-COVID - Musculoskeletal: Reports ability to perform exercises like squatting - General: Reports fatigue associated with COVID earlier this month Physical Exam - General- Patient in no apparent distress Results - Ultrasound: Normal, no abnormalities noted Plan - Elevated liver enzymes: Continue monitoring liver enzyme levels. Blood work is ordered to reassess liver enzyme status. No changes necessary if liver enzymes remain stable. Patient was informed and verbally consented to the use of an ambient scribe for clinic note documentation during this visit. Discussion Notes I discussed with the patient the results of the previous ultrasound, which were normal, and the overall status of his liver enzymes. We talked about the self-limiting nature of his elevated liver enzyme issue, given the normal imaging, and the plan to have further blood work to monitor this condition. I also confirmed that he feels well following his recent COVID-19 infection, which should not impact his enzyme levels. We concluded that no immediate intervention is needed unless future blood work suggests otherwise. The patient was reminded to continue his fitness regimen and to keep up with vaccinations, which he appears to be managing well. Patient Instructions - Please complete the ordered blood tests to monitor liver enzyme levels. - Continue exercising as tolerated. - Follow up in six months or sooner if symptoms arise or worsen. - Ensure vaccinations remain up to date.
[2024-04-17 09:02] VITALS: BP 120/80; PULSE 70; O2SAT 98; BMI 27.7
== END 2024-04-17 09:18 | disposition home or self-care (01) ==
PROVIDERS: PCP Internal Medicine; Visit Provider Internal Medicine
DX: R74.8 Abnormal levels of other serum enzymes (principal)

== ENCOUNTER 2024-04-17 08:58 | Outpatient (REF) | payer OTHER, SELFPAY ==
[2024-04-17 11:00] LABS: Hematocrit 45.1 % (42.0-52.0); Mean Corpuscular HGB Conc 35.5 g/dl (31.0-36.0); Mean Corpuscular Hemoglobin 29.8 pg (27.0-33.0); Mean Platelet Volume 11.7 fL (9.4-12.4); Platelet Count 200 X10*3/uL (160-400); Red Blood Count 5.37 X10*6/uL (4.60-5.80); Red Cell Distribution Width 12.3 % (11.0-16.0); White Blood Count 6.4 X10*3/uL (4.8-10.8)
[2024-04-17 11:23] LABS: Appearance Urine Clear; Color Urine Yellow; Glucose Urine UA Negative (Negative); Leukocyte Esterase Urine Negative (Negative); Nitrite Urine Negative (Negative); PH 6.5 (5.0-9.0); Urine Blood Negative (Negative); Urine Ketones Negative (Negative); Urine Protein Negative (Neg-Trace)
[2024-04-17 11:37] LABS: Albumin Level 4.3 g/dL (3.5-5.0); Alkaline Phosphatase 89 U/L (39-117); Anion Gap 12 (12-20); Aspartate Amino Transferase 34 U/L (5-37); Bilirubin Direct 0.2 mg/dL (0.0-0.5); Bilirubin Total 0.8 mg/dL (0.0-1.0); Blood Urea Nitrogen 12 mg/dL (9-16); Calcium 9.6 mg/dL (8.4-10.2); Carbon Dioxide 30 mmol/L (22-29); Chloride 106 mmol/L (96-108); Cholesterol 210 mg/dL (<200); Estimated Glomerular Filt Rate 58; Glucose Random 88 mg/dL (60-115); HDL Cholesterol 47 mg/dL (>40); LDL Cholesterol Calculated 126 mg/dL (<100); Potassium 4.3 mmol/L (3.3-5.1); Sodium 144 mmol/L (135-145); Total Protein 7.1 g/dL (6.5-8.0); Triglycerides 187 mg/dL (<150)
[2024-04-17 11:48] LABS: Alanine Aminotransferase 62 U/L (0-40)
[2024-04-17 11:57] LABS: Thyroid Stimulating Hormone 1.12 uIU/mL (0.32-4.0)
== END 2024-04-17 08:59 | disposition home or self-care (01) ==
LOC: HO.LAB 08:58
PROVIDERS: PCP Internal Medicine; Visit Provider Internal Medicine
DX: R74.8 Abnormal levels of other serum enzymes (principal)
CPT/HCPCS: 36415; 80048; 80061; 80076; 81003; 84443; 85027; 99212

== ENCOUNTER 2024-08-13 11:04 | Outpatient (AMB) | payer OTHER, SELFPAY ==
[2024-08-13 11:07] VITALS: BP 122/80; PULSE 72; TEMP 36.7; O2SAT 99; BMI 27.7
--- NOTE | 2024-08-13 11:07 | AM.OFFWIN_ITS ---
Intake Vital Signs 3 08/13/24 11:07 Height 5 ft 7 in Weight 177 lb BMI 27.7 BP 122/80 Blood Pressure Location Lt brachial Position Sitting Pulse 72 Pulse Source Pulse Oximeter Temp 98.0 F Temp Source Oral Pulse Oximetry (%) 99 Oxygen Delivery Method Room Air Intake Visit Reasons: EP-lt foot pain/discomfort Patient Tobacco Use Status: Never used Tobacco Accompanied by: Self / Same As Patient Allergies No Known Allergies Allergy (Verified 08/13/24 11:08) Medication List - Last Reconciled 08/13/24 by Ky Cerda MD No Known Home Meds Do you need a note to return to daycare/school/sports/work: Yes HPI EP-lt foot pain/discomfort 2 HPI0 Details History - The patient is a 33-year-old male pres enting with pain in the arch of the foot following six-mile running activity. - The pain started the following day aft er running and has been described as mild during walking, but exacerbated when attempting to run on the treadmill. - The pain has shown some improvement co mpared to the previous day but persists. - There is no previous history of simila r episodes, and no medications have been taken for the pain. Problem List - Plantar Fasciitis Patient Instructions - Rest and avoid activities that exacerb ate the pain, such as running. - Use arch supports to alleviate symptom s. - Jfgx-jfu-yixtejd anti-inflammatory med ications like ibuprofen or naproxen may be used to reduce inflammation. - An x-ray will be performed to rule out any fractures, and further instructions will be given based on the x-ray results. [facility] Medical History Elevated liver enzymes Allergic rhinitis Surgical History No history of previous surgery Family History Mother No problems noted. 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 Hearing needs: No Vision needs: No Review of Systems Const All systems reviewed & are unremarkable except as noted in HPI and below Physical Exam Vital Signs: Last Vital Signs Temp 98.0 F 08/13/24 11:07 Pulse 72 08/13/24 11:07 BP 122/80 08/13/24 11:07 Pulse Ox 99 08/13/24 11:07 Oxygen Delivery Method Room Air 08/13/24 11:07 BMI result Body Mass Index 27.7 Const General: no acute distress Orientation/consciousness: patient oriented x3 Eyes General: appearance normal, both eyes and all related structures Resp Effort & Inspection: normal respiratory effort and able to speak in complete sentences Neuro General: patient oriented x3 Extrem Ankle/foot/toe images: 2 1. Site of pain, but no pain with palpation today anywhere on the foot, neurovascular intact Psych Mental Status: mental status grossly normal Assessment & Plan Assessment & Plan (1) Foot pain, left: Code(s): M79.672 - Pain in left foot Plan History - The patient is a 33-year-old male presenting with pain in the arch of the foot following six-mile running activity. - The pain started the following day after running and has been described as mild during walking, but exacerbated when attempting to run on the treadmill. - The pain has shown some improvement compared to the previous day but persists. - There is no previous history of similar episodes, and no medications have been taken for the pain. Problem List - Plantar Fasciitis Patient Instructions - Rest and avoid activities that exacerbate the pain, such as running. - Use arch supports to alleviate symptoms. - Ezzr-dwc-dxkwzrs anti-inflammatory medications like ibuprofen or naproxen may be used to reduce inflammation. - An x-ray will be performed to rule out any fractures, and further instructions will be given based on the x-ray results. Coding Level of Care Code Est Pt Level 3 (67903) Diagnoses Foot pain, left M79.672
--- OUTSIDE RECORDS SUMMARY | 2024-08-13 13:33 | XMS_ITS | Patient Health Record ---
Author Organization [facility]. Address [address] [place] [address] Care Team Providers Care Table Top Tile Setter Name Role Phone Gena June Primary Care Provider Reason For Referral No Information Social History Tobacco Use: Social History Observation Description Date Details (start date - stop date) Never Smoker NA - NA Tobacco Use/Smoking Question Answer Notes Are you a nonsmoker Additional Findings: Tobacco Non-User Current no n-smoker Alcohol Screen Question Answer Notes Did you have a drink contain ing alcohol in the past year? Yes How often did you have a dri nk containing alcohol in the past year? 2 to 4 times a month (2 points) How many drinks did you have on a typical day when you were drinking in the past year? 3 or 4 drinks (1 point) How often did you have 6 or more drinks on one occasion in the past year? Never (0 point) Points 3 Interpretation Negative Sexual History Question Answer Notes Had sex in the past 12 months (vaginal, oral, or anal)? Yes with Women only Use protection? No Prevention strategies discussed: Other Have you ever had a Sexually transmitted disease ? No SBIRT (2018 Edition) Question Answer Notes Patient refused/declined SBIRT screening at this time? No 1. How often do you have a drink containing alco hol? Never 3. How often do you have five or more drinks on one occasion? Never SCORE 0 Interpretation Negative How many times in the past y ear have you used an illegal drug or used a prescription medication for non-medical reasons? 0 Total Count 0 Interpretation Negative Problems No Known Problems Plan Of Treatment No Information Insurance Providers Payer Name Payer Address Payer Phone Subscriber Number Group Number Insured Name Patient Relationship to Insured Coverage Start Date Coverage End Date Susan Prime [address] [place] [address] [id number] Marquis Lynn Self - patient is the insured Medical (General) History Surgical History Surgery Date(Month/Year)
--- OUTSIDE RECORDS SUMMARY | 2024-08-13 13:33 | XMS_ITS | Patient Health Record ---
Author Organization [facility] Address [address] [place], [place] [id number] Care Team Providers Care Marine Architect Name Role Phone [place], [place] Primary Care Provider [id number] Reason For Referral No Information Problems No Known Problems Plan Of Treatment No Information Insurance Providers Payer Name Payer Address Payer Phone Subscriber Number Group Number Insured Name Patient Relationship to Insured Coverage Start Date Coverage End Date [facility] COMP [id number] [place] [address] [employer], Employee
== END 2024-08-13 11:39 | disposition home or self-care (01) ==
PROVIDERS: PCP Internal Medicine; Visit Provider Internal Medicine
DX: M79.672 Pain in left foot (principal)

== ENCOUNTER 2024-08-13 11:04 | Outpatient (REF) | payer OTHER, SELFPAY ==
--- NOTE | ~2024-08-13 | XR_ITS ---
EXAMINATION: XR FOOT 3 OR MORE VIEWS LEFT HISTORY: M79.672 - Pain in left foot COMPARISON: There are no prior studies available for comparison. FINDINGS: Three views of the left foot are submitted. Osseous mineralization is normal. There is no fracture or dislocation. The joint spaces are preserved. The soft tissues are unremarkable. XR/XR foot LT min 3V IMPRESSION: Unremarkable examination of the left foot. Electronically signed by: Soren Bar MD 08/14/2024 08:49 AM EDT
== END 2024-08-13 11:05 | disposition home or self-care (01) ==
LOC: HO.HMGCX 11:04
PROVIDERS: PCP Internal Medicine; Visit Provider Internal Medicine
DX: M79.672 Pain in left foot (principal)
CPT/HCPCS: 73630; 99212

== ENCOUNTER → 2024-08-13 11:21 | Outpatient (BNV) | payer OTHER, SELFPAY | PROVIDERS: PCP Internal Medicine; Visit Provider Radiology Diagnostic Radiology | DX: M79.672 Pain in left foot (principal) | CPT/HCPCS: 73630 ==

== ENCOUNTER 2024-09-05 08:23 | Outpatient (AMB) | payer OTHER, SELFPAY ==
--- NOTE | 2024-09-05 08:37 | MHC.PC.OV ---
Vital Signs 09/05/24 08:41 Height 5 ft 7 in Weight 185 lb 4 oz BMI 29.0 BP 120/80 Blood Pressure Location Lt brachial Position Sitting Pulse 63 Pulse Source Pulse Oximeter Temp 97.3 F Temp Source Temporal Artery Scan Pulse Oximetry (%) 93 Oxygen Delivery Method Room Air Intake Visit Reasons: Annual Exam Intake Note: Patient is here today for a physical. 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 Designer: Not Required per policy Accompanied by: Self / Same As Patient Allergies No Known Allergies Allergy (Verified 09/05/24 08:38) Tobacco use date assessed: 09/05/24 Dental Screening Dental Screen Date: 09/05/24 Did you have a dental visit in the last 12 months?: Yes Did you have a dental problem in the last 6 months where you did not have access to dental care?: No Was dental information given to patient?: Patient has dentist [facility] Medical History Elevated liver enzymes Allergic rhinitis Surgical History No history of previous surgery Family History Mother No problems noted. 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 Hearing needs: No Vision needs: No Questionnaire PHQ-9 Over the last 2 weeks, how often have you been bothered by any of the following problems? 1. Little interest or pleasure in doing things: not at all 2. Feeling down, depressed, or hopeless: not at all 3. Trouble falling or staying asleep, or sleeping too much: not at all 4. Feeling tired or having little energy: not at all 5. Poor appetite or overeating: not at all 6. Feeling bad about yourself - or that you are a failure or have let yourself or your family down: not at all 7. Trouble concentrating on things, such as reading the newspaper or watching television: not at all 8. Moving or speaking so slowly that other people could have noticed. Or the opposite - being so fidgety or restless that you have been moving around a lot more than usual: not at all 9. Thoughts that you would be better off or of hurting yourself in some way: not at all Total score: 0 Depression Screening Interpretation: Negative Depression Screening Done: Yes Source: Developed by Drs. Soren Jorge, Valerie David, Teodoro Escobedo and colleagues, with an educational luisito from [employer]. Thrive Questionnaire Date Thrive assessed: 08/29/24 I am a: Patient What is your living situation today?: I have a steady place to live Within the past 12 months, did the food you bought not last and you didn't have the money to get more?: Never true Within the past 12 months, did you worry whether your food would run out before you got money to buy more?: Never true Do you have trouble paying for medicines?: No Do you have trouble getting transportation to medical appointments?: No Do you have trouble paying your heating and electricity bill?: No Do you have trouble taking care of your child, family member or friend?: No Do you have trouble with day-to-day activities such as bathing, preparing meals, shopping, managing finances, etc.?: No Are you currently unemployed and looking for a job?: No Are you interested in more education?: No Please select the resources that you would like help with: None Currently or been in a relationship where the following occur: No concerns reported THRIVE Score: 0 AUDIT C Alcohol Use Questionnaire (AUDIT-C) 1. How often do you have a drink containing alcohol?: 2-4 times a month 2. How many drinks containing alcohol do you have on a typical day when you are drinking?: 3 or 4 3. How often do you have six or more drinks on one occasion?: Never Total Score: 3 MAINOR-7 AMB Questionnaire MAINOR-7 Date MAINOR - 7 assessed: 09/05/24 Feeling nervous, anxious, or on edge: 0 = Not at all Not being able to stop or control worryin = Not at all Worrying too much about different things: 0 = Not at all Trouble relaxin = Not at all Being so restless that it is hard to sit still: 0 = Not at all Becoming easily annoyed or irritable: 0 = Not at all Feeling afraid as if something awful might happen: 0 = Not at all Total MAINOR-7 score (0-4 normal; 5-9 mild; 10-14 moderate; 15-21 severe): 0 Source: Developed by Drs. Soren Jorge, Valerie David, Teodoro Escobedo and colleagues, with an educational luisito from [employer]. Physical exam (Primary Care) Vital Signs: Last Vital Signs Temp 97.3 F 09/05/24 08:41 Pulse 63 09/05/24 08:41 BP 120/80 09/05/24 08:41 Pulse Ox 93 09/05/24 08:41 Oxygen Delivery Method Room Air 09/05/24 08:41 BMI result Body Mass Index 29.0 Tobacco/Smoking Status: Tobacco use Status Tobacco use date assessed 09/05/24 09/05/24 08:44 Patient Tobacco Use Status Never used Tobacco 09/05/24 08:38 e-Cigarette/Vaping Use Never Used 09/05/24 08:38 PHQ-9: PHQ-9 Score PHQ-9: Total score 0 09/05/24 08:38 Depression Screening Interpretation: Negative Thrive Assessment: Date of Thrive Assessment Date Thrive assessed 08/29/24 09/05/24 08:38 Currently or been in a relationship where the following occur: No concerns reported Coding Level of Care Code Est Pt Prev Care 18-39y(53505) Diagnoses Annual physical exam Z00.00 Assessment & Plan Assessment & Plan (1) Annual physical exam: Code(s): Z00.00 - Encounter for general adult medical examination without abnormal findings Category: Medical Plan: History of Present Illness The patient is a 33-year-old male presenting with a request for a physical examination. He indicated recently undergoing a similar examination and related tests within a setting, which included blood work and comprehensive evaluation, all returning satisfactory results. He voiced no current health concerns, denying any reports of pain or difficulties with his usual functional activities. The patient is poised for a permanent change of station (PCS) scheduled for December, with relocation planned to [place], [place], with a proposed stay lasting up to three years. 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 Review of Systems - General: Denies pain. - Respiratory: Denies any respiratory problems or symptoms. Physical Exam General: Cooperative and healthy appearing Nutritional Appearance: Well nourished Orientation/consciousness: Patient oriented x3 Limitations: No limitations Head: Normal to inspection General: Appearance normal, both eyes and all related structures Neck: Normal visual inspection Chest: Normal palpation of entire chest wall Respiratory: No pains ormal respiratory effort Neurology: Patient oriented x3 Results Plan The patient's recent physical results were reviewed and noted as satisfactory. No additional testing or interventions were necessary due to the absence of current health concerns. The patient agreed to continue with regular annual wellness assessments. Patient was informed and verbally consented to the use of an ambient scribe for clinic note documentation during this visit. Discussion Notes During our discussion, the patient and I reviewed the results of a recent comprehensive physical examination he underwent through medical services, which showed no abnormalities or areas of concern. He confirmed his readiness for a permanent change of station beginning in December. Routine annual assessments were encouraged to ensure continued health monitoring. The conversation highlighted the importance of maintaining wellness in light of his service and upcoming geographic relocation. Patient Instructions - Attend routine annual wellness check-ups. - Ensure personal health is monitored during the upcoming permanent change of station. - Maintain current health and lifestyle routine to support ongoing service readiness.
[2024-09-05 08:41] VITALS: BP 120/80; PULSE 63; TEMP 36.3; O2SAT 93; BMI 29.0
--- OUTSIDE RECORDS SUMMARY | 2024-09-05 08:44 | XMS_ITS | Patient Health Record ---
Author Organization [employer] [facility]. Address [address] [place] [address] Care Team Providers Care Director Digital Advertising Name Role Phone Gena June Primary Care Provider [phone] Reason For Referral No Information Social History [...] Insured Coverage Start Date Coverage End Date [employer] [address] [place] [address] [id number] Marquis Lynn Self - patient is the insured Medical (General) History Surgical History Surgery Date(Month/Year)
--- OUTSIDE RECORDS SUMMARY | 2024-09-05 08:44 | XMS_ITS | Patient Health Record ---
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
== END 2024-09-05 09:01 | disposition home or self-care (01) ==
LOC: HO.HMCH 08:24
PROVIDERS: PCP Internal Medicine; Visit Provider Internal Medicine
DX: Z00.00 Encounter for general adult medical examination without abnormal findings (principal)

== ENCOUNTER → 2024-09-05 08:23 | Outpatient (BNVA) | payer OTHER, SELFPAY | PROVIDERS: PCP Internal Medicine; Visit Provider Internal Medicine ==